=== PATIENT | female | born 1980 | race African-American/Black ===

== ENCOUNTER 2017-06-16 07:45 | Day surgery (SDC) | payer SELFPAY ==
[2017-06-15 08:54] VITALS: BMI 21.9
[2017-06-16] MEDS ORDERED: LIDOCAINE 1%/EPI 1:100000 (20 ML MULTI DOSE VIAL) ONE (09:02)
[2017-06-16] MEDS ORDERED: BENZOIN/ALOE VERA/STORAX/TOLU 58 ML BOTTLE ONE (09:02)
[2017-06-16] MEDS ORDERED: MICROFIBRILLAR COLLAGEN 1 GM EACH ONE (09:02)
[2017-06-16] MEDS ORDERED: ePHEDrine SULFATE 50 MG/1 ML AMPULE ONE (09:05)
[2017-06-16] MEDS ORDERED: fentaNYL CITRATE 250 MCG/5 ML VIAL ONE (09:05)
[2017-06-16] MEDS ORDERED: MIDAZOLAM HCL 2 MG/2 ML SINGLE DOSE VIAL ONE (09:07)
[2017-06-16] MEDS ORDERED: ceFAZolin SODIUM 1 GM VIAL IVPB ONE (09:51)
[2017-06-16] MEDS ORDERED: LIDOCAINE 1%/EPI 1:100000 (50 ML MULTI DOSE VIAL) INF ONE (10:02)
[2017-06-16] MEDS ORDERED: MICROFIBRILLAR COLLAGEN 1 GM EACH TP ONE ×2 (10:19→11:15)
[2017-06-16] MEDS ORDERED: LACTATED RINGERS SOLUTION 1,000 ML IV SCH (12:00)
[2017-06-16] MEDS ORDERED: oxyCODONE HCL 5 MG TABLET PO PRN (12:21)
[2017-06-16] MEDS ORDERED: ONDANSETRON 4 MG/2 ML VIAL IVPUSH PRN (12:21)
--- NOTE | 2017-06-16 12:30 | SURG ---
Surgery Education Reviewer Note Education Reviewer: Donnie Vann MD Date of Service: 06/16/17 Diagnosis: enlarged thyroid Procedure: total thyroidectomy I was present for the entirety of the operative procedure. For further detail, please refer to operative report. Visit type - Case Type Case Type: Scheduled Admission - Emergency Emergency Visit: No - New patient This patient is new to me today: Yes Date on this admission: 06/16/17
[2017-06-16] MEDS ORDERED: ONDANSETRON 4 MG/2 ML VIAL ONE (12:52)
[2017-06-16] MEDS: CALCITRIOL 0.25 MCG CAPSULE (FP) PO SCH (13:40)
[2017-06-16] MEDS: CALCIUM CARBONATE 650 MG TABLET PO SCH (13:40)
[2017-06-16] MEDS ORDERED: PROMETHAZINE HCL 25 MG/1 ML VIAL IVPUSH ONE (15:46)
[2017-06-16] MEDS ORDERED: KETOROLAC TROMETHAMINE 30 MG/1 ML VIAL IVPUSH ONE (15:46)
--- NOTE | 2017-06-16 20:47 | OP ---
DATE OF OPERATION: 06/16/2017 SURGICAL ATTENDING: James Zhang MD MOLD WORKER: Donnie Vann MD PREOPERATIVE DIAGNOSIS: Thyroid goiter. POSTOPERATIVE DIAGNOSIS: Thyroid goiter. ANESTHESIA: General endotracheal. PROCEDURE: 1. Total thyroidectomy. 2. Neck ultrasound. DESCRIPTION OF PROCEDURE: The patient was taken into the operating room, placed in a supine position, endotracheally intubated. The eyes were protected. A shoulder roll was placed. Neck ultrasound was performed showing a large thyroid goiter with no adenopathy. The neck was then prepped and draped in the usual sterile fashion. Local anesthesia was administered, and an 8-cm horizontal neck incision was made in a mid-neck skin crease. This was carried down through subcutaneous tissues and platysma. Subplatysmal flaps were raised superiorly and inferiorly, and flap hooks were placed for exposure. The median raphe was incised, and the strap muscles were elevated bilaterally. Dissection began on the left side where the recurrent laryngeal nerve, superior laryngeal nerve, and parathyroid glands were identified and preserved. The superior, posterior, and inferior attachments were transected. The isthmus was transected. In this way, the left thyroid lobe was removed and sent to Pathology. Before it was sent, it was checked for parathyroid tissue, and none was found. Dissection then continued on the right side where the recurrent laryngeal nerve, superior laryngeal nerve, and parathyroid glands were identified and preserved. The superior, posterior, and inferior attachments were transected. In this way, the right thyroid lobe was removed and sent to Pathology as well. Before it was sent, it was checked for parathyroid tissue, and none was found. Hemostasis was achieved with electrocautery and Avitene. Valsalva maneuver was also performed. Note that nerve monitoring was used throughout. The wound was then closed in 3 layers. Sterile dressings and Dermabond were placed. The patient was then awakened, extubated, and taken to Recovery in stable condition. Dr. Zhang, the attending surgeon, was present throughout the entire procedure. JAMES ZHANG M.D. [id number]
[2017-06-17] MEDS: CALCIUM CARBONATE 650 MG TABLET PO SCH (10:15)
[2017-06-17] MEDS: CALCITRIOL 0.25 MCG CAPSULE (FP) PO SCH (10:16)
--- NOTE | 2017-06-17 10:19 | PN ---
Progress Note (short form) - Note Progress Note: patient seen and examined. pod1 from total thyroidectomy. feeling well, some discomfort on swallowing. breathing and speaking well. well-appearing, in no distress, wound cdi, no chvostek's sign. neck flat with no bruising. voice clear. Doing well post-op. DC IV and DC home. RTO .
[2017-06-17 14:52] VITALS: BP 116/66; PULSE 78; TEMP 98.9
--- NOTE | 2017-06-20 09:39 | PATH ---
Surgical Pathology Report Patient Name: VERNELL BRAY [facility]. Rec. #: [id number] /Age/Gender: 1980 (Age: 36) / F Account: [id number] Location: [facility] SURGICAL Taken: 06/16/2017 Received: 06/16/2017 Reported: 06/20/2017 Physicians: Toby Mills M.D. Specimen(s) Received A: LEFT THYROID LOBE B: RIGHT THYROID LOBE Clinical History Thyroid goiter Final Diagnosis A. THYROID, LEFT LOBE, TOTAL THYROIDECTOMY: BENIGN THYROID WITH MULTINODULAR HYPERPLASIA AND CYSTIC CHANGES. B. THYROID, RIGHT LOBE, TOTAL THYROIDECTOMY: BENIGN THYROID WITH MULTINODULAR HYPERPLASIA AND CYSTIC CHANGES. ONE PARATHYROID TISSUE/GLAND PRESENT. Electronically Signed Soledad Clements M.D. Gross Description A. Received in formalin labeled "left thyroid lobe," is a 132 g, 10.0 x 5.5 x 4.5 cm thyroid lobe. The outer capsule is pereira-brown and intact. Sectioning reveals abundant heterogeneous, focally hemorrhagic colloid nodules. No normal thyroid parenchyma is identified. Senior Information Developer sections are sequentially submitted in 10 cassettes. B. Received in formalin labeled "right thyroid lobe," is a 77 g, 7.5 x 5.8 x 3.2 cm thyroid lobe. The outer capsule is pereira-brown and intact. Sectioning reveals abundant heterogeneous, focally hemorrhagic colloid nodules. No normal thyroid parenchyma is identified. Senior Information Developer sections are sequentially submitted in 8 cassettes. /06/17/201706/17/2017
== END 2017-06-17 17:20 | disposition home or self-care (01) ==
LOC: JASU-SURG 07:45 → JASUSAT 07:45 → J8W 17:45 → JASUSAT 06-17 17:20
PROVIDERS: ATTEND Surgery
PROC: 0GBJ0ZZ Excision of Thyroid Gland Isthmus, Open Approach (ICD-10-PCS; 2017-06-16)
PROC: 0GTK0ZZ Resection of Thyroid Gland, Open Approach (ICD-10-PCS; principal; 2017-06-16 09:00)
DX: E04.9 Nontoxic goiter, unspecified (principal)
CPT/HCPCS: 36415; 82310; 84703; 88307-TC; 94760